=== PATIENT | female | born 1990 | race Caucasian/White ===

== ENCOUNTER 2016-04-25 15:04 | Emergency (ER) | payer OTHER ==
[2016-04-25] MEDS ORDERED: GABAPENTIN 100 MG CAPSULE PO STA (18:04)
[2016-04-25] MEDS ORDERED: GABAPENTIN 100 MG CAPSULE PO ONE (18:10)
== END 2016-04-25 18:23 | disposition home or self-care (01) ==
DX: M79.1 Myalgia (principal); R25.1 Tremor, unspecified; R51 Headache; E03.9 Hypothyroidism, unspecified
CPT/HCPCS: 36415; 70450; 80053; 80306; 81003; 81025; 83690; 84443; 85025; 85651; 99283; 99284; A9270

== ENCOUNTER 2017-03-26 13:07 | Outpatient (CLI) | payer OTHER | END 2017-03-26 13:08 | disposition critical access hospital (66) | LOC: EMS 13:07 | PROVIDERS: ATTEND Surgery | DX: M54.5 Low back pain (principal); R51 Headache; W10.9XXA Fall (on) (from) unspecified stairs and steps, initial encounter; Y92.008 Other place in unspecified non-institutional (private) residence as the place of occurrence of the external cause | CPT/HCPCS: A0425; A0429 ==

== ENCOUNTER 2017-03-26 13:23 | Emergency (ER) | payer OTHER ==
[2017-03-26] MEDS ORDERED: ACETAMINOPHEN 325 MG TABLET PO STA (13:36)
--- NOTE | 2017-03-26 13:39 | ED Physician Documentation ---
PD HPI ABD PAIN - Stated complaint Stated Complaint: FALL DOWN 3 STEPS/ 15 WK PREG - History obtained from History obtained from: Patient, EMS - History of Present Illness Timing - onset: Other (26-year-old at 15 weeks gestation was cleaning the carpets on her stairs and slipped and fell on her rear end and probably hit the back of her head on a stair. She complains of headache and low back pain but mostly is worried about the baby. 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 - Present Medications Home Medications: Ambulatory Orders Medication Instructions Recorded Confirmed Levothyroxine [Synthroid] 175 mcg PO DAILY 09/21/14 01/17/15 Gabapentin 300 mg PO TID #20 capsule 04/25/16 Liothyronine [Cytomel] 5 mcg PO QDAC 04/25/16 04/25/16 - Allergies Allergies/Adverse Reactions: Allergies Allergy/AdvReac Type Severity Reaction Status Date / Time acetaminophen [From Vicodin] Allergy vomitting Verified 01/17/15 23:22 amoxicillin trihydrate * Allergy Rash Verified 01/17/15 23:22 [From Augmentin] hydrocodone bitartrate * Allergy vomitting Verified 01/17/15 23:22 [From Vicodin] potassium clavulanate * Allergy Rash Verified 01/17/15 23:22 [From Augmentin] sulfamethoxazole Allergy Rash Verified 01/17/15 23:22 [From Septra] tramadol Allergy throat Verified 01/17/15 23:22 swelling trimethoprim [From Septra] Allergy Rash Verified 01/17/15 23:22 - Social History Does the pt smoke?: No Smoking Status: Never smoker Does the pt drink ETOH?: No Does the pt have substance abuse?: No - Immunizations Immunizations are current?: Yes - POLST Patient has POLST: No PD ED PE NORMAL - Vitals Vital signs reviewed: Yes - General General: Alert and oriented X 3, No acute distress - HEENT HEENT: PERRL, EOMI - Neck Neck: Supple, no meningeal sign, No bony TTP - Cardiac Cardiac: RRR, No murmur - Respiratory Respiratory: No respiratory distress, Clear bilaterally - Abdomen Abdomen: Soft, Non tender, Other (Bedside ultrasound demonstrates single live intrauterine with heart rate of 150.) - Back Back: Other (Mild lumbar spine tenderness) - Extremities Extremities: No deformity, No tenderness to palpate, Normal ROM s pain, No edema , No calf tenderness / cord - Neuro Neuro: Alert and oriented X 3, Normal speech Eye Opening: Spontaneous Motor: Obeys Commands Verbal: Oriented GCS Score: 15 - Psych Psych: Normal mood, Normal affect Results - Vitals Vitals: Oxygen O2 Source Room air PD MEDICAL DECISION MAKING - ED course ED course: We discussed the pros and cons of performing imaging including head CT and lumbar spine x-ray, after discussion she declined imaging and will have family observe her at home. Departure - Departure Disposition: 01 Home, Self Care Clinical Impression: Qualifiers: Weeks of gestation: 15 weeks Qualified Code(s): Z3A.15 - 15 weeks gestation of Fall down stairs Qualifiers: Encounter type: initial encounter Qualified Code(s): W10.8XXA - Fall (on) (from ) other stairs and steps, initial encounter Back contusion Qualifiers: Encounter type: initial encounter Laterality: unspecified laterality Qualified Code(s): S20.229A - Contusion of unspecified back wall of thorax, initial encounter Condition: Good Record reviewed to determine appropriate education?: Yes Instructions: ED Low Back Pain Injury Comments: Tylenol as needed for pain. Return if worse or if new symptoms develop, especially if headache worsens or develop vomiting. Or vaginal bleeding or fluid loss.
[2017-03-26 13:40] VITALS: BP 127/64
[2017-03-26] MEDS ORDERED: ACETAMINOPHEN 325 MG TABLET PO ONE (13:55)
== END 2017-03-26 13:53 | disposition home or self-care (01) ==
LOC: EDUNIT# → ED 13:23
DX: O9A.212 Injury, poisoning and certain other consequences of external causes complicating pregnancy, second trimester (principal); S30.0XXA Contusion of lower back and pelvis, initial encounter; W10.8XXA Fall (on) (from) other stairs and steps, initial encounter; Y93.E3 Activity, vacuuming; Y92.018 Other place in single-family (private) house as the place of occurrence of the external cause; O99.282 Endocrine, nutritional and metabolic diseases complicating pregnancy, second trimester; E03.9 Hypothyroidism, unspecified; Z3A.15 15 weeks gestation of pregnancy
CPT/HCPCS: 99283; A9270

== ENCOUNTER 2017-06-11 18:34 | Outpatient (CLI) | payer OTHER ==
[2017-06-11] MEDS ORDERED: ONDANSETRON 4 MG/2 ML VIAL ONE (19:03)
[2017-06-11] MEDS ORDERED: LACTATED RINGERS 1,000 ML IV ONE (19:03)
[2017-06-11] MEDS ORDERED: SODIUM CHLORIDE FLUSH 0.9% 10 ML SYRINGE ONE (19:04)
[2017-06-11] MEDS ORDERED: PROMETHAZINE 25 MG SUPP PR SCH (21:00)
[2017-06-11] MEDS ORDERED: PROMETHAZINE 25 MG/1 ML VIAL IV SCH (21:00)
[2017-06-11] MEDS ORDERED: ONDANSETRON 4 MG/2 ML VIAL IM SCH (21:00)
[2017-06-11] MEDS: LACTATED RINGERS 1,000 ML IV SCH (22:55)
[2017-06-12] MEDS: ONDANSETRON 4 MG/2 ML VIAL IVP PRN ×3 (00:33→12:33)
[2017-06-12] MEDS: LACTATED RINGERS 1,000 ML IV SCH ×3 (01:02→08:24)
[2017-06-12] MEDS ORDERED: ACETAMINOPHEN 325 MG TABLET PO PRN (06:42)
[2017-06-12 08:05] VITALS: BP 105/48
[2017-06-12] MEDS ORDERED: SODIUM CHLORIDE FLUSH 0.9% 10 ML SYRINGE ONE (12:29)
== END 2017-06-12 12:49 | disposition home or self-care (01) ==
LOC: WFO 18:34 → FBP 18:36 → WFO 06-12 12:49
PROVIDERS: ATTEND Obstetrics & Gynecology
DX: O21.2 Late vomiting of pregnancy (principal); Z3A.26 26 weeks gestation of pregnancy
CPT/HCPCS: 96361; 96374; 96375; 99214; A9270; J7120

== ENCOUNTER 2017-09-18 14:20 | Emergency (ER) | payer OTHER ==
[2017-09-18 15:46] LABS: BILIRUBIN,URINE NEGATIVE (NEGATIVE); GLUCOSE, URINE (UA) NEGATIVE (NEGATIVE); KETONES,URINE (UA) NEGATIVE (NEGATIVE); LEUKOCYTE ESTERASE, URINE NEGATIVE (NEGATIVE); NITRITE,URINE NEGATIVE (NEGATIVE); OCCULT BLOOD,URINE SMALL (NEGATIVE); PH,URINE 5.5 PH (5.0-7.5); PROTEIN,URINE NEGATIVE (NEGATIVE); UROBILINOGEN,URINE 0.2 (NORMAL) E.U./dL (NORMAL)
[2017-09-18 15:49] LABS: CLARITY,URINE HAZY (CLEAR); HCG UR QUAL NEGATIVE
[2017-09-18 16:04] LABS: BACTERIA,URINE None Seen /HPF (None Seen); RBC,URINE 0-5 /HPF (0-5); SQUAMOUS EPITHELIAL CELL,UR FEW Squamous (<= Few)
[2017-09-18 16:13] LABS: BASOPHILS % (AUTO) 0.4 %; EOSINOPHILS # (AUTO) 0.3 10^3/uL (0.0-0.7); EOSINOPHILS % (AUTO) 4.5 %; HGB - HEMOGLOBIN 11.6 g/dL (12.0-16.0); LYMPHOCYTES # (AUTO) 1.6 10^3/uL (1.5-3.5); MEAN CORPUSCULAR HEMOGLOBIN 25.9 pg (27.0-31.0); MEAN CORPUSCULAR HGB CONC 31.3 g/dL (32.0-36.0); MEAN CORPUSCULAR VOLUME 82.7 fL (81.0-99.0); MEAN PLATELET VOLUME 6.9 fL (7.9-10.8); MONOCYTES # (AUTO) 0.4 10^3/uL (0.0-1.0); MONOCYTES % (AUTO) 6.5 %; NEUTROPHILS # (AUTO) 4.1 10^3/uL (1.5-6.6); NEUTROPHILS % (AUTO) 63.6 %; PLT - PLATELET COUNT 392 10^3/uL (130-450); RED BLOOD COUNT 4.47 10^6/uL (4.20-5.40); RED CELL DISTRIBUTION WIDTH 14.5 % (12.0-15.0); WHITE BLOOD COUNT 6.4 x10^3/uL (4.8-10.8)
[2017-09-18 16:19] LABS: ALBUMIN 3.1 g/dL (3.2-5.5); ALBUMIN/GLOBULIN RATIO 0.7 (1.0-2.2); BILIRUBIN,TOTAL 0.6 mg/dL (0.2-1.0); CALCIUM 8.9 mg/dL (8.5-10.3); CREATININE 0.7 mg/dL (0.4-1.0); TOTAL PROTEIN 7.3 g/dL (6.7-8.2)
--- NOTE | 2017-09-18 16:23 | ED Physician Documentation ---
History of Present Illness - Stated complaint Stated Complaint: HEADACHE/CRAMPING/VOMITING/6DAYS POST - Chief complaint Chief Complaint: General - History obtained from History obtained from: Patient, Family - History of Present Illness Timing: How many days ago (several) Pain level max: 5 Pain level now: 5 Improved by: rest, morphine Worsened by: walking - Additonal information Additional information: Patient is a 26 year old female who is 6 days post . States increased leg swelling over the past few days. L>R. States contsant pain B LE. started to have a headache today as well. States photophobia, and burning sensation over her head. last took her morphine today at 0500. has had low back pain since she delivered 6 days ago. had a and epidural at [facility]. Denies fevers, chills, weakness, or numbness. Review of Systems Ten Systems: 10 systems reviewed and negative Constitutional: denies: Fever, Chills Eyes: reports: Photophobia Ears: denies: Ear pain Nose: denies: Rhinorrhea / runny nose, Congestion Throat: denies: Sore throat Cardiac: denies: Chest pain / pressure Respiratory: denies: Cough GI: denies: Nausea, Vomiting, Diarrhea : denies: Dysuria, Frequency, Hesitancy Skin: denies: Rash Musculoskeletal: denies: Neck pain, Extremity pain Neurologic: denies: Focal weakness, Numbness PD PAST MEDICAL HISTORY - Past Medical History Past Medical History: Yes Endocrine/Autoimmune: HyPOthyroidism GI: Other - Past Surgical History 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 - Present Medications Home Medications: Ambulatory Orders Medication Instructions Recorded Confirmed Levothyroxine [Synthroid] 175 mcg PO DAILY 09/21/14 01/17/15 Gabapentin 300 mg PO TID #20 capsule 04/25/16 Liothyronine [Cytomel] 5 mcg PO QDAC 04/25/16 04/25/16 - Allergies Allergies/Adverse Reactions: Allergies Allergy/AdvReac Type Severity Reaction Status Date / Time amoxicillin trihydrate * Allergy Rash Verified 03/26/17 13:40 [From Augmentin] hydrocodone bitartrate * Allergy vomitting Verified 03/26/17 13:40 [From Vicodin] potassium clavulanate * Allergy Rash Verified 03/26/17 13:40 [From Augmentin] sulfamethoxazole Allergy Rash Verified 03/26/17 13:40 [From Septra] tramadol Allergy throat Verified 03/26/17 13:40 swelling trimethoprim [From Septra] Allergy Rash Verified 03/26/17 13:40 - Social History Does the pt smoke?: No Smoking Status: Never smoker Does the pt drink ETOH?: No Does the pt have substance abuse?: No - Immunizations Immunizations are current?: Yes - POLST Patient has POLST: No PD ED PE NORMAL - Vitals Vital signs reviewed: Yes - General General: Alert and oriented X 3, No acute distress, Well developed/nourished - HEENT HEENT: PERRL, EOMI (no papilledema), Ears normal, Moist mucous membranes, Pharynx benign - Neck Neck: Supple, no meningeal sign, No bony TTP - Cardiac Cardiac: RRR, Strong equal pulses - Respiratory Respiratory: No respiratory distress, Clear bilaterally - Abdomen Abdomen: Soft, Non tender, Non distended - Back Back: No CVA TTP, Other (Mild tenderness around the epidural site. Mild bruising on the skin. No evidence of infection) - Derm Derm: Warm and dry, No rash - Extremities Extremities: Other (Bilateral lower extremity swelling, left and right lower extremities appear equal. 1+ pitting edema. 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, No motor deficit, No sensory deficit, Normal speech Eye Opening: Spontaneous Motor: Obeys Commands Verbal: Oriented GCS Score: 15 - Psych Psych: Normal mood, Normal affect Results - Vitals Vitals: Vital Signs - 24 hr 09/18/17 09/18/17 09/18/17 14:34 17:09 18:28 Temperature 36.7 C 36.4 C L Heart Rate 81 78 Respiratory 16 18 Rate Blood Pressure 160/100 H 126/87 H 125/74 O2 Saturation 99 99 Oxygen O2 Source Room air - Labs Labs: Laboratory Tests 09/18/17 09/18/17 09/18/17 15:22 15:54 15:54 WBC 6.4 RBC 4.47 Hgb 11.6 L Hct 37.0 MCV 82.7 MCH 25.9 L MCHC 31.3 L RDW 14.5 Plt Count 392 MPV 6.9 L Neut # 4.1 Lymph # 1.6 Luce # 0.4 Eos # 0.3 Baso # 0.0 Absolute Nucleated RBC 0.00 Nucleated RBC % 0.0 Sodium 134 L Potassium 3.7 Chloride 102 Carbon Dioxide 24 Anion Gap 8.0 BUN 9 Creatinine 0.7 Estimated GFR (MDRD) 101 Glucose 88 Calcium 8.9 Total Bilirubin 0.6 AST 58 H ALT 51 Alkaline Phosphatase 210 H Total Protein 7.3 Albumin 3.1 L Globulin 4.2 Albumin/Globulin Ratio 0.7 L Lipase 29 Urine Color YELLOW Urine Clarity HAZY Urine pH 5.5 Ur Specific [place] 1.010 Urine Protein NEGATIVE Urine Glucose (UA) NEGATIVE Urine Ketones NEGATIVE Urine Occult Blood SMALL H Urine Nitrite NEGATIVE Urine Bilirubin NEGATIVE Urine Urobilinogen 0.2 (NORMAL) Ur Leukocyte Esterase NEGATIVE Urine RBC 0-5 Urine WBC 0-3 Ur Squamous Epith Cells FEW Squamous Urine Bacteria None Seen Ur Microscopic Review INDICATED Urine Culture Comments NOT INDICATED Urine HCG, Qual NEGATIVE PD MEDICAL DECISION MAKING - ED course Complexity details: reviewed results, re-evaluated patient, considered differential, d/w patient, d/w family, d/w web consultant ED course: Patient is a 26-year-old female who is 6 days after a at [facility]. She has had swelling in her legs and they feel heavier than she has also had some back pain after the epidural. She has been on morphine at home, but states she is still having pain. She was given a dose of Toradol as well as Lasix here. Urinating well in the emergency department and back pain greatly improved. Headache also improved. No evidence of sepsis. No evidence of epidural abscess. No evidence of DVT. No evidence of pulmonary embolus or sinus venous thrombosis. No evidence of Severiano syndrome. Discussed the case with Dr. Preciado, OB on-call and recommends that she follow-up with her OB as an outpatient. Patient and family counseled regarding signs and symptoms for which I believe and urgent re-evaluation would be necessary. Patient with good understanding of and agreement to plan and is comfortable going home at this time This document was made in part using voice recognition software. While efforts are made to proofread this document, sound alike and grammatical errors may occur. Departure - Departure Disposition: 01 Home, Self Care Clinical Impression: Peripheral edema Headache Qualifiers: Headache type: unspecified Headache chronicity pattern: acute headache Intractability: not intractable Qualified Code(s): R51 - Headache Back pain Qualifiers: Back pain location: low back pain Chronicity: acute Back pain laterality: midline Sciatica presence: without sciatica Qualified Code(s): M54.5 - Low back pain Condition: Good Instructions: Anesthesia Epidural, ED Edema Legs Bilateral Follow-Up: Barbara Sullivan MD [Physician No Access] - Within 1 week Comments: Return if you worsen. This should improve over the next few days. Follow up with your OB on tuesday. Discharge Date/Time: 09/18/17 18:29
[2017-09-18] MEDS ORDERED: KETOROLAC 60 MG/2 ML VIAL IVP STA (17:08)
[2017-09-18] MEDS ORDERED: FUROSEMIDE 40 MG/4 ML VIAL IVP STA (17:11)
[2017-09-18] MEDS ORDERED: ONDANSETRON 4 MG/2 ML VIAL IVP STA (17:21)
[2017-09-18 18:29] VITALS: BP 125/74
== END 2017-09-18 18:29 | disposition home or self-care (01) ==
LOC: ED 14:20
DX: O99.89 Other specified diseases and conditions complicating pregnancy, childbirth and the puerperium (principal); R51 Headache; M54.5 Low back pain; O12.05 Gestational edema, complicating the puerperium
CPT/HCPCS: 36415; 80053; 81001; 81003; 81025; 83690; 85025; 87086; 96374; 96375; 99283; 99284

== ENCOUNTER 2021-06-17 03:22 | Outpatient (CLI) | payer OTHER | END 2021-06-17 03:23 | disposition critical access hospital (66) | LOC: EMS 03:22 | DX: R05.9 Cough, unspecified (principal); R09.89 Other specified symptoms and signs involving the circulatory and respiratory systems; X08.8XXA Exposure to other specified smoke, fire and flames, initial encounter; Y92.009 Unspecified place in unspecified non-institutional (private) residence as the place of occurrence of the external cause | CPT/HCPCS: A0425; A0429 ==

== ENCOUNTER 2021-06-17 03:39 | Emergency (ER) | payer OTHER ==
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
[2021-06-17 04:30] LABS: ABG HCO3 22.8 mmol/L (22.0-26.0); ABG PCO2 36 mmHg (34-45); ABG PH 7.42 (7.35-7.45); ABG PO2 104 mmHg (80-100)
[2021-06-17 04:31] LABS: ABG BASE EXCESS -1.2 mmol/L (-2.0-3.0); ABG OXYGEN SATURATION 98 % (94-98); ABG TCO2 23.9 MMOL/L (21.0-29.0); ALLEN TEST POSITIVE
[2021-06-17 04:34] LABS: CARBOXYHEMOGLOBIN ARTERIAL 0.2 % (0-1.5); HEMOGLOBIN TOTAL, ARTERIAL WB 12.9 g/dL (12.0-18.0)
[2021-06-17 04:53] VITALS: BP 130/82
== END 2021-06-17 04:59 | disposition home or self-care (01) ==
LOC: EDUNIT# → ED 03:39
DX: Z77.098 Contact with and (suspected) exposure to other hazardous, chiefly nonmedicinal, chemicals (principal)
CPT/HCPCS: 36600; 80048; 82375; 82550; 82553; 82803; 85025; 99282; 99283